=== PATIENT | female | born 1940 | race Caucasian/White ===

== ENCOUNTER → 2018-08-24 | Outpatient (CLI) | payer MEDICARE, OTHER ==
--- NOTE | 2018-08-24 13:09 | Diagnostic Imaging Report ---
Right hip at 1104 hours. INDICATION: Fell, hip pain. 2 views were obtained. There are no prior studies available for comparison. FINDINGS: There is no fracture, dislocation or acute bony abnormality evident. There is severe degenerative disease of the hip joint. There is marked narrowing of the joint space and there is sclerosis of the opposing surfaces of the femoral head and acetabulum. The soft tissues are unremarkable. IMPRESSION: 1. There is no evidence for an acute bony abnormality. 2. There is severe degenerative disease of the hip joint. Dictated by: Dictated on workstation # [id number]
== END ==
LOC: RAD 10:30
PROVIDERS: ATTEND Family Medicine
DX: M17.11 Unilateral primary osteoarthritis, right knee (principal); W19.XXXA Unspecified fall, initial encounter
CPT/HCPCS: 73502

== ENCOUNTER → 2023-09-01 | Outpatient (CLI) | payer MEDICARE, OTHER | LOC: WOUNDCARE 11:53 | PROVIDERS: ATTEND Family Medicine | DX: E11.622 Type 2 diabetes mellitus with other skin ulcer (principal); L97.322 Non-pressure chronic ulcer of left ankle with fat layer exposed; I70.243 Atherosclerosis of native arteries of left leg with ulceration of ankle; I87.312 Chronic venous hypertension (idiopathic) with ulcer of left lower extremity; I89.0 Lymphedema, not elsewhere classified; F17.218 Nicotine dependence, cigarettes, with other nicotine-induced disorders; E11.52 Type 2 diabetes mellitus with diabetic peripheral angiopathy with gangrene | CPT/HCPCS: 11042; 87070; 87205; A6212; G0463 ==

== ENCOUNTER → 2023-09-08 | Outpatient (CLI) | payer MEDICARE, OTHER | LOC: WOUNDCARE 12:08 | PROVIDERS: ATTEND Family Medicine | DX: E11.622 Type 2 diabetes mellitus with other skin ulcer (principal); L97.322 Non-pressure chronic ulcer of left ankle with fat layer exposed; I70.243 Atherosclerosis of native arteries of left leg with ulceration of ankle; I87.312 Chronic venous hypertension (idiopathic) with ulcer of left lower extremity; I89.0 Lymphedema, not elsewhere classified; F17.218 Nicotine dependence, cigarettes, with other nicotine-induced disorders; E11.52 Type 2 diabetes mellitus with diabetic peripheral angiopathy with gangrene | CPT/HCPCS: 11042; G0463 ==

== ENCOUNTER → 2023-09-16 | Outpatient (CLI) | payer MEDICARE, OTHER | LOC: WOUNDCARE 13:33 | PROVIDERS: ATTEND Family Medicine | DX: I70.243 Atherosclerosis of native arteries of left leg with ulceration of ankle (principal); I96 Gangrene, not elsewhere classified; I87.332 Chronic venous hypertension (idiopathic) with ulcer and inflammation of left lower extremity; I89.0 Lymphedema, not elsewhere classified; E11.622 Type 2 diabetes mellitus with other skin ulcer; L97.322 Non-pressure chronic ulcer of left ankle with fat layer exposed; F17.218 Nicotine dependence, cigarettes, with other nicotine-induced disorders | CPT/HCPCS: 11042; A6454; A6456; G0463 ==

== ENCOUNTER → 2023-09-21 | Outpatient (CLI) | payer MEDICARE, OTHER | LOC: WOUNDCARE 12:14 | PROVIDERS: ATTEND Family Medicine | DX: I96 Gangrene, not elsewhere classified (principal); L97.824 Non-pressure chronic ulcer of other part of left lower leg with necrosis of bone; E11.40 Type 2 diabetes mellitus with diabetic neuropathy, unspecified | CPT/HCPCS: 29580; A6454; A6456; G0463 ==

== ENCOUNTER → 2023-09-23 | Outpatient (CLI) | payer MEDICARE, OTHER | LOC: WOUNDCARE 14:22 | PROVIDERS: ATTEND Family Medicine | DX: E11.22 Type 2 diabetes mellitus with diabetic chronic kidney disease (principal); L97.322 Non-pressure chronic ulcer of left ankle with fat layer exposed; I70.243 Atherosclerosis of native arteries of left leg with ulceration of ankle; I87.312 Chronic venous hypertension (idiopathic) with ulcer of left lower extremity; I89.0 Lymphedema, not elsewhere classified; F17.218 Nicotine dependence, cigarettes, with other nicotine-induced disorders; E11.52 Type 2 diabetes mellitus with diabetic peripheral angiopathy with gangrene | CPT/HCPCS: 29580; A6454; A6456; G0463 ==